=== PATIENT | female | born 1965 | race Caucasian/White ===

== ENCOUNTER 2019-10-23 15:12 | Emergency (ER) | payer OTHER, SELFPAY ==
[~2019-10-23] VITALS: Ht 129.5 cm; Wt 57.2 kg
[2019-10-23 15:13] VITALS: BP 141/93
--- NOTE | 2019-10-23 15:40 | NUR ---
PT FURTHER COMPLAINTS OF DRY COUGH X 1 WEEK. NO RESPIRATORY DISTRESS. 98% RA. EUPNIC.
--- NOTE | 2019-10-23 15:40 | NUR ---
54 Y/O F C/C SWOLLEN BILATERAL HANDS X 1 WEEK. PER PT SHE WAS DOING "MAGIC" WHEN THE INCIDENT HAPPENED. PT DENIES BEING BURNED OR FALLING. ON ASSESSMENT, BILATERAL HANDS SWOLLEN, WARM TO THE TOUCH, SCALY SKIN NOTED, AND ERYTHEMA ON BILATERAL PALMS. ROM/CMS/CAP REFILL/NEURO VASCULAR WNL. PAIN 10/10, BURNING SENSATION. PT NKA. HX SCHIZOPHRENIA. RX DEPAKOTE,ZYPREXA. PT A/OX4. AMBULATORY. COOPERATIVE. CALM.
[2019-10-23] MEDS ORDERED: cefTRIAXone 1,000 MG in LIDOCAINE MPF 1% 2.1 ML IM ONE (16:05)
[2019-10-23] MEDS ORDERED: cefTRIAXone 1,000 MG VIAL ONE (16:07)
[2019-10-23] MEDS ORDERED: LIDOCAINE MPF 1% 5 ML ONE (16:08)
--- NOTE | 2019-10-23 16:25 | NUR ---
COVID SWAB DONE ; TAKEN TO LAB
[2019-10-23 16:59] VITALS: BP 141/93
== END 2019-10-23 16:59 | disposition home or self-care (01) ==
LOC: MED 15:12
DX: M79.89 Other specified soft tissue disorders (principal); Z20.828 Contact with and (suspected) exposure to other viral communicable diseases; F20.9 Schizophrenia, unspecified
CPT/HCPCS: 71045; 96372; 99284; C9803; J0696; J2001; Q0092; U0003; 36415; 99283

== ENCOUNTER 2019-11-19 11:47 | Emergency (ER) | payer OTHER, SELFPAY ==
[~2019-11-19] VITALS: Ht 160 cm; Wt 56.7 kg
[2019-11-19 11:58] VITALS: BP 118/75
--- NOTE | 2019-11-19 12:08 | NUR ---
PT PRESENTS WITH OOZING, ERYTHEMATOUS RASH ON BILATERAL HANDS, ARMS, FEET, AND FACE WITH ITCHINESS, IRRITATION, AND BURNING SENSATION FOR FOUR MONTHS. PT DENIES ANY FEVER, CP, SOB, OR COUGH AT THIS TIME; PATIENT STATES PAIN OF 6/10 AT THIS TIME; VSS; PATIENT POSITIONED FOR COMFORT; HOB ELEVATED; BEDRAILS UP X1; BED DOWN. ER MD MADE AWARE OF PT STATUS.
--- NOTE | 2019-11-19 12:22 | NUR ---
Patient discharged with v/s stable. Written and verbal after care instructions given and explained. Patient alert, oriented and verbalized understanding of instructions. Ambulatory with steady gait. All questions addressed prior to discharge. ID band removed. Patient advised to follow up with PMD. Rx of Hydrocortisone, Cephalexin, and Prednisone given. Patient educated on indication of medication including possible reaction and side effects. Opportunity to ask questions provided and answered.
== END 2019-11-19 12:22 | disposition home or self-care (01) ==
LOC: MED 11:47
DX: L30.9 Dermatitis, unspecified (principal); L03.113 Cellulitis of right upper limb; L03.114 Cellulitis of left upper limb; F20.0 Paranoid schizophrenia; J45.909 Unspecified asthma, uncomplicated; Z88.5 Allergy status to narcotic agent; Z98.890 Other specified postprocedural states
CPT/HCPCS: 99283